=== PATIENT | female | born 1955 | race Caucasian/White ===

== ENCOUNTER → 2017-10-10 | Outpatient (CLI) | payer OTHER ==
[~2017-10-10] MED LIST: LIPITOR 20 MG T20 M1 PO; NEURONTIN100 MG PO; NEXIUM40 MG PO; ZOVIRAX400 MG PO
== END ==
LOC: M.RAD 13:51
DX: Z12.31 Encounter for screening mammogram for malignant neoplasm of breast (principal); M85.89 Other specified disorders of bone density and structure, multiple sites; Z78.0 Asymptomatic menopausal state; N91.2 Amenorrhea, unspecified

== ENCOUNTER → 2018-04-25 | Outpatient (CLI) | payer OTHER | LOC: M.MRI 04-07 14:30 | DX: G96.19 Other disorders of meninges, not elsewhere classified (principal) ==

== ENCOUNTER 2018-08-18 13:32 | Emergency (ER) | payer OTHER ==
[~2018-08-18] VITALS: Ht 175.3 cm; Wt 65.8 kg
[2018-08-18] MEDS ORDERED: ZALEPLON 10 MG10 M1 PO (13:42)
[2018-08-18] MEDS ORDERED: STOOL SOFTENER PO (13:43)
[2018-08-18] MEDS ORDERED: VITAMIN D2000 UNIT PO (13:43)
[2018-08-18 14:28] LABS: ABSOLUTE EOSINOPHILS 0.1 thou/uL (0.0-0.7); ABSOLUTE LYMPHOCYTES 1.5 thou/uL (0.8-5.3); ABSOLUTE MONOCYTES 0.4 thou/uL (0.0-1.2); ABSOLUTE NEUTROPHILS 2.4 thou/uL (1.6-8.1); BASOPHILS 0.9 %; EOSINOPHILS 2.1 %; HEMATOCRIT 32.1 % (37.0-47.0); HEMOGLOBIN 11.1 gm/dL (12.0-15.0); LYMPHOCYTES 34.4 %; MCH 31.1 pg (26.0-34.0); MCHC 34.7 g/dL (28.0-37.0); MCV 89.8 fL (80.0-100.0); MPV 9.5 fl. (7.2-11.1); NUCLEATED RBCS 0 /100WBC; PLATELET COUNT* 160 thou/uL (150-400); POLYS 54.6 %; RBC 3.58 mil/uL (4.20-5.00); WBC 4.4 thou/uL (4.0-11.0)
[2018-08-18 14:53] LABS: ALBUMIN 4.1 g/dL (3.4-5.0); ALKALINE PHOSPHATASE 46 U/L (46-116); ANION GAP 11 mmol/L (7-16); BUN 12 mg/dL (7-18); CALCIUM 9.6 mg/dL (8.5-10.1); CHLORIDE 103 mmol/L (98-107); CO2 27 mmol/L (21-32); CREATININE 0.8 mg/dL (0.6-1.3); GLUCOSE 154 mg/dL (70-99); POTASSIUM 3.8 mmol/L (3.5-5.1); SGOT 13 U/L (15-37); SGPT 19 U/L (30-65); SODIUM 141 mmol/L (136-145); TOTAL BILIRUBIN 0.4 mg/dL (<0.1-1.0); TOTAL PROTEIN 7.3 g/dL (6.4-8.2); TROPONIN-I LEVEL <0.06 ng/mL (<0.06)
[2018-08-18 16:23] VITALS: BP 131/82
--- NOTE | 2018-08-19 10:04 | EKG ---
[place] [address] ELECTROCARDIOGRAM REPORT Name: CHASIDY KONG Room: [facility]#: [id number] Admission: 08/18/18 Attend Phys: Discharge: 08/18/18 Date of : 55 Report #: [id number] THIS REPORT FOR: //name// [facility] ED Test Date: 2018-08-18 Test Time: 14:18:53 Pat Name: CHASIDY KONG Department: Room: Gender: F Fabrication Operator: : 1955 Requested By: Dorcas Delaney Order Number: [id number] MD: Aly Merchant Measurements Intervals [place] Rate: 82 P: 52 ND: 171 QRS: 15 QRSD: 70 T: 58 QT: 335 QTc: 392 Interpretive Statements Sinus rhythm No previous ECG available for comparison Electronically Signed On 08-19-2018 10:04:15 CDT by Aly Merchant [email or web address] <ELECTRONICALLY SIGNED> By: Aly Merchant MD, [facility] 08/19/18 1004 1418 1418 Aly Merchant MD, FACC /EPI
== END 2018-08-18 16:23 | disposition home or self-care (01) ==
LOC: M.ERS 13:32
PROVIDERS: Physician Assistant
DX: F41.9 Anxiety disorder, unspecified (principal); R06.00 Dyspnea, unspecified; Z88.6 Allergy status to analgesic agent; Z88.0 Allergy status to penicillin; Z88.8 Allergy status to other drugs, medicaments and biological substances; Z90.710 Acquired absence of both cervix and uterus

== ENCOUNTER 2018-10-01 13:35 | Emergency (ER) | payer OTHER ==
[~2018-10-01] VITALS: Ht 175.3 cm; Wt 64.4 kg
[~2018-10-01 13:35] MED LIST changes: +STOOL SOFTENER PO; +VITAMIN D2000 UNIT PO; +ZALEPLON 10 MG10 M1 PO
[2018-10-01] MEDS ORDERED: LUNESTA1 MG PO (13:52)
[2018-10-01] MEDS ORDERED: NYAMYC15 GM TOP (13:53)
[2018-10-01] MEDS ORDERED: DIFLUCAN200 MG PO (13:53)
[2018-10-01 14:17] LABS: URINE BILIRUBIN NEGATIVE (Negative); URINE BLOOD NEGATIVE (Negative); URINE CLARITY CLEAR; URINE COLOR YELLOW; URINE GLUCOSE-RANDOM NEGATIVE (Negative); URINE KETONES NEGATIVE (Negative); URINE LEUKOCYTES-REFLEX NEGATIVE (Negative); URINE NITRITE-REFLEX NEGATIVE (Negative); URINE PROTEIN NEGATIVE (Negative); URINE SPECIFIC GRAVITY >= 1.030 (1.005-1.030); URINE UROBILINOGEN 0.2 E.U./dl (0.2-1.0)
[2018-10-01 14:31] LABS: ABSOLUTE BASOPHILS 0.1 thou/uL (0.0-0.2); ABSOLUTE EOSINOPHILS 0.1 thou/uL (0.0-0.7); ABSOLUTE LYMPHOCYTES 1.9 thou/uL (0.8-5.3); ABSOLUTE MONOCYTES 0.6 thou/uL (0.0-1.2); ABSOLUTE NEUTROPHILS 3.2 thou/uL (1.6-8.1); BASOPHILS 0.9 %; EOSINOPHILS 1.9 %; HEMATOCRIT 36.1 % (37.0-47.0); HEMOGLOBIN 12.5 gm/dL (12.0-15.0); LYMPHOCYTES 31.6 %; MCHC 34.5 g/dL (28.0-37.0); MCV 89.8 fL (80.0-100.0); MONOCYTES 10.3 %; MPV 9.1 fl. (7.2-11.1); NUCLEATED RBCS 0 /100WBC; PLATELET COUNT* 210 thou/uL (150-400); POLYS 55.3 %; RBC 4.02 mil/uL (4.20-5.00); RDW-CV 14.3 % (10.5-14.5); WBC 5.9 thou/uL (4.0-11.0)
[2018-10-01 14:39] LABS: ANION GAP 6 mmol/L (7-16); BUN 20 mg/dL (7-18); CALCIUM 9.3 mg/dL (8.5-10.1); CHLORIDE 105 mmol/L (98-107); CO2 29 mmol/L (21-32); CREATININE 0.8 mg/dL (0.6-1.3); GLUCOSE 116 mg/dL (70-99); POTASSIUM 4.3 mmol/L (3.5-5.1); PROTIME 10.7 Seconds (9.20-11.50); SODIUM 140 mmol/L (136-145)
[2018-10-01 14:48] LABS: ALBUMIN 3.7 g/dL (3.4-5.0); ALKALINE PHOSPHATASE 39 U/L (46-116); LIPASE 90 U/L (73-393); SGOT 13 U/L (15-37); SGPT 20 U/L (30-65); TOTAL BILIRUBIN 0.3 mg/dL (<0.1-1.0); TOTAL PROTEIN 6.5 g/dL (6.4-8.2); TROPONIN-I LEVEL <0.06 ng/mL (<0.06)
[2018-10-01 15:48] VITALS: BP 100/73
--- NOTE | 2018-10-02 14:43 | EKG ---
[place] [address] ELECTROCARDIOGRAM REPORT Name: CHASIDY KONG Room: [facility]#: [id number] Admission: 10/01/18 Attend Phys: Discharge: 10/01/18 Date of : 55 Report #: [id number] THIS REPORT FOR: //name// [facility] ED Test Date: 2018-10-01 Test Time: 14:47:37 Pat Name: CHASIDY KONG Department: Room: Gender: F Solution Design Engineer: : 1955 Requested By: Dorcas Galvan Order Number: [id number] MD: Clifton Perez Measurements Intervals [place] Rate: 73 P: 55 OR: 173 QRS: 44 QRSD: 72 T: 61 QT: 350 QTc: 386 Interpretive Statements Sinus rhythm Compared to ECG 08/18/2018 14:18:53 No significant changes Electronically Signed On 10-02-2018 14:43:38 CDT by Clifton Perez [email or web address] <ELECTRONICALLY SIGNED> By: Clifton Perez MD, [facility] 10/02/18 1443 1447 1447 Clifton Perez MD, FACC /EPI
== END 2018-10-01 15:51 | disposition home or self-care (01) ==
LOC: M.ERS 13:35
PROVIDERS: Personal Emergency Response Attendant
DX: R10.2 Pelvic and perineal pain (principal); Z88.0 Allergy status to penicillin; Z88.8 Allergy status to other drugs, medicaments and biological substances; Z88.6 Allergy status to analgesic agent; Z90.710 Acquired absence of both cervix and uterus

== ENCOUNTER 2021-05-11 23:09 | Emergency (ER) | payer MEDICARE ==
[~2021-05-11] VITALS: Ht 175.3 cm; Wt 68.0 kg
[~2021-05-11 23:09] MED LIST changes: +DIFLUCAN200 MG PO; +LUNESTA1 MG PO; +NYAMYC15 GM TOP
[2021-05-11] MEDS ORDERED: OMEPRAZOLE 20 M20 M1 PO (23:17)
[2021-05-12 01:25] VITALS: BP 112/67
== END 2021-05-12 01:25 | disposition home or self-care (01) ==
LOC: M.ERS 23:09
DX: S01.112A Laceration without foreign body of left eyelid and periocular area, initial encounter (principal); Z90.711 Acquired absence of uterus with remaining cervical stump; Z79.899 Other long term (current) drug therapy; Z88.8 Allergy status to other drugs, medicaments and biological substances; Z88.0 Allergy status to penicillin; W01.198A Fall on same level from slipping, tripping and stumbling with subsequent striking against other object, initial encounter; Y93.89 Activity, other specified; Y92.89 Other specified places as the place of occurrence of the external cause; Y99.8 Other external cause status